=== PATIENT | male | born 1985 | race Caucasian/White ===

== ENCOUNTER 2017-03-03 09:43 | Emergency (ER) | payer OTHER ==
[~2017-03-03] VITALS: Ht 182.9 cm; Wt 74.8 kg
[2017-03-03] MEDS ORDERED: LORAZEPAM 1 MG TABLET PO ONE (10:00)
[2017-03-03] MEDS ORDERED: CLONIDINE HCL 0.1 MG TABLET PO ONE (10:00)
[2017-03-03] MEDS ORDERED: IBUPROFEN 400 MG TABLET PO ONE (10:00)
[2017-03-03] MEDS ORDERED: CLONIDINE HCL 0.1 MG TABLET ONE (10:06)
[2017-03-03] MEDS ORDERED: LORAZEPAM 1 MG TABLET ONE (10:06)
[2017-03-03] MEDS ORDERED: IBUPROFEN 400 MG TABLET ONE (10:06)
[2017-03-03 10:43] VITALS: BP 121/75
== END 2017-03-03 11:17 ==
LOC: ER 09:45
DX: M25.562 Pain in left knee (principal); F10.20 Alcohol dependence, uncomplicated; F11.10 Opioid abuse, uncomplicated; G89.29 Other chronic pain; Z76.5 Malingerer [conscious simulation]
CPT/HCPCS: 73564; 99284; A4606; Z7610